=== PATIENT | male | born 1980 | race Caucasian/White ===

== ENCOUNTER 2016-10-24 05:43 | Day surgery (SDC) | payer OTHER ==
--- NOTE | 2016-10-21 13:48 | GHP ---
[f rep st] PREOP HISTORY AND PHYSICAL DATE OF ADMISSION: 10/24/2016 HISTORY OF PRESENT ILLNESS: The patient is a 36-year-old male who complains of painful bleeding hemorrhoids for many years that have become more difficult to control with diet. On physical exam, he was found to have a single column of protruding internal hemorrhoids with visible ulceration. At this time he is ready to pursue an exam under anesthesia with hemorrhoidectomy. Risks and options have been fully discussed including, but not limited to, bleeding, infection, nerve injury, bowel injury, incontinence, anal stricture recurrence and other problems, and he requests to proceed. PAST MEDICAL HISTORY: The patient is planning on having his wisdom teeth extracted; otherwise, no major medical issues. PAST SURGICAL HISTORY: Denies. MEDICATIONS: Denies. ALLERGIES: No known drug allergies. 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 He denies tobacco use. FAMILY HISTORY: Noncontributory. REVIEW OF SYSTEMS: Negative aside for bloody bowel movements as described above. PHYSICAL EXAMINATION: GENERAL: Reveals a well-developed, well-nourished 36- year-old male, alert and oriented x3, and in no acute distress. HEENT: Normocephalic, atraumatic. CHEST: Clear to auscultation bilaterally without wheezes, rhonchi, or rales. CARDIAC: Regular rate and rhythm without murmurs. ABDOMEN: Soft, nontender. EXTREMITIES: Warm and dry. Grade 3-4 prolapsing internal hemorrhoids in a single column with ulceration. IMPRESSION: This is a 36-year-old male with painful bleeding grade 4 hemorrhoids. PLAN: Proceed with an exam under anesthesia with hemorrhoidectomy and possible internal hemorrhoid band ligation. Again risks and options have been discussed and he requests to proceed. /[id number]/MODL MTDD
[2016-10-24] MEDS ORDERED: LIDOCAINE 1% 5 ML SDV ONE (06:05)
[2016-10-24] MEDS ORDERED: BUPIVACAINE/EPI 0.5% 30 ML SDV ONE (06:46)
[2016-10-24] MEDS ORDERED: cefOXitin SODIUM 2 GM in D5W 100 ML IV ONE (07:00)
[2016-10-24] MEDS ORDERED: MIDAZOLAM 2 MG/2 ML VIAL ONE (07:04)
[2016-10-24] MEDS ORDERED: LIDOCAINE 2% 5 ML SDV ONE (07:08)
[2016-10-24] MEDS ORDERED: fentaNYL 250 MCG/5 ML INJ ONE (07:12)
[2016-10-24] MEDS ORDERED: PROPOFOL/EMULSION 500 MG/50 ML BOTTLE IV ONE (07:12)
[2016-10-24] MEDS ORDERED: DEXAMETHASONE 4 MG/ML VIAL ONE (07:46)
[2016-10-24] MEDS ORDERED: SUGAMMADEX SODIUM 200 MG/2 ML VIAL IVP ONE (07:46)
[2016-10-24] MEDS ORDERED: ROCURONIUM 50 MG/5 ML VIAL ONE (07:46)
[2016-10-24] MEDS ORDERED: ONDANSETRON 4 MG/2 ML VIAL ONE (07:50)
--- NOTE | 2016-11-06 20:05 | GOP ---
[f rep st] OPERATIVE REPORT DATE OF OPERATION: 10/24/2016 SURGEON: Sma Lopez MD WEB METHODS DEVELOPER: None. ANESTHESIOLOGIST: Dr. Levin. PREOPERATIVE DIAGNOSIS: Prolapsing hemorrhoids. POSTOPERATIVE DIAGNOSIS: Prolapsing hemorrhoids. PROCEDURE PERFORMED: Exam under anesthesia, with hemorrhoidectomy. FINDINGS: The patient was found to have a large prolapsing hemorrhoid at the 7 o'clock position, sm aller hemorrhoids at the 11 and 5 o'clock position. DESCRIPTION OF PROCEDURE: Patient was taken to the operating room. He received satisfactory genera l endotracheal anesthesia by Dr. Levin. He was placed in the lithotomy position, prepped and dr aped in the usual sterile fashion. The anus was infiltrated with 0.5% Marcaine and dilated to 3 fin gerbreadths. The obvious large prolapsing hemorrhoid at 7 o'clock was isolated. It was ligated at the apex with a 3-0 Vicryl suture. Elliptical skin and mucosal incision was then made and the hemor rhoidal tissue was elevated above the sphincter muscle. It was then divided with electrocautery up to the apical stitch where it was amputated. Hemostasis was obtained with electrocautery and then t mucosa was advanced and closed with a running 3-0 Vicryl suture leaving a small portion of the sk in open for drainage. The wound was infiltrated with 0.5% Marcaine. The other hemorrhoids involved were quite small, being grades 1 to 2. They were rubber band ligated at the 5 o'clock position and 11 o'clock position. The wounds were dressed. He tolerated the procedure well. He was taken to t recovery room in good condition. There were no complications. There was no energy assistant. /[id number]/MODL
== END 2016-10-24 10:00 | disposition home or self-care (01) ==
LOC: FSGY 05:43
PROVIDERS: ATTEND Surgery
PROC: 06LY0CC Occlusion of Hemorrhoidal Plexus with Extraluminal Device, Open Approach (ICD-10-PCS; principal; 2016-10-24 07:15)
DX: K64.3 Fourth degree hemorrhoids (principal)
CPT/HCPCS: J0694; J1100; J2250; J2405; J2704; J3010